=== PATIENT | female | born 1965 | race Caucasian/White ===

== ENCOUNTER 2019-12-18 07:46 | Outpatient (CLI) | payer OTHER, SELFPAY ==
--- NOTE | 2019-12-18 08:19 | US_ITS ---
WS: [id number] ABDOMINAL ULTRASOUND REASON FOR EXAM: ABDOMINAL PAIN TECHNIQUE: Grayscale and Doppler ultrasound examination of the abdomen. FINDINGS: Pancreas: Visualized portions are unremarkable. Abdominal aorta and IVC: Visualized portions are unremarkable. Liver: Liver measures 16.3 cm in length. Increased heterogeneous echo pattern compatible with fatty i nfiltration. Gallbladder: Gallbladder wall thickness measures 0.3 cm. Multiple calculi within the gallbladder. Pat ient had pain to palpation with the ultrasound probe over the gallbladder. Left kidney: Left kidney measures 12.8 cm x 5.7 cm x 6.6 cm. No calculus or mass. There is mild/moder ate dilatation of the intrarenal collecting system. Right kidney: Right kidney measures 12.1 cm x 5.6 cm x 4.5 cm. No mass, calculus, or hydronephrosis. Spleen: Spleen measures 8.7 cm x 5.2 cm x 10.5 cm. No focal lesion. No free peritoneal fluid. US/US abdomen complete* [id number] IMPRESSION: Cholelithiasis and tenderness to palpation of the gallbladder compatible with a cute cholecystitis. There is also fatty infiltration of the liver. There is mild to moderate hydronephrosis of the left kidney. Possibly this is d ue to the relative UPJ stenosis. More significant obstructive cause cannot be c ompletely excluded. As clinically warranted a follow-up ultrasound of the left kidney can be performed and if the dilatation persists a CT scan may be require d for further evaluation.
== END 2019-12-18 07:47 | disposition home or self-care (01) ==
PROVIDERS: PCP Nurse Practitioner Family; Visit Provider Nurse Practitioner Family
DX: R10.9 Unspecified abdominal pain (principal); K80.20 Calculus of gallbladder without cholecystitis without obstruction; K76.0 Fatty (change of) liver, not elsewhere classified; N13.30 Unspecified hydronephrosis
CPT/HCPCS: 76700

== ENCOUNTER → 2020-01-02 13:28 | Outpatient (BNVA) | payer OTHER, SELFPAY | PROVIDERS: PCP Nurse Practitioner Family; Visit Provider Surgery | DX: Z11.59 Encounter for screening for other viral diseases (principal); K80.20 Calculus of gallbladder without cholecystitis without obstruction | CPT/HCPCS: 87635 ==

== ENCOUNTER 2020-01-06 07:21 | Day surgery (SDC) | payer OTHER, SELFPAY ==
[2020-01-05 09:47] VITALS: BMI 39.6
[2020-01-06] VITALS (8 sets, daily range): BP systolic 124–157; BP diastolic 76–95; PULSE 54–74; RESP 15–20; TEMP 36.1–36.6; O2SAT 96–100
--- NOTE | 2020-01-06 08:07 | W.PM.OPSUD ---
Surgery/Procedure H&P Update DATE OF PROCEDURE: January 06, 2020 DATE H&P PERFORMED: 12/28/19 H&P UPDATE INFORMATION: I have reviewed H&P completed within last 30 days, I have examined patient prior to procedure and No changes to prior documentation PREOP DIAGNOSIS: cholelithiasis PLANNED PROCEDURE: Operation Date: 01/06/20 08:50 Proposed Procedures p Laparoscopic poss open Cholecystectomy 04305 k80.20(Not Applicable) - Obed Lau MD
--- NOTE | 2020-01-06 08:09 | PM.OP ---
Operative Report Date of procedure: January 06, 2020 Pre-op Diagnosis: cholelithiasis Post-op diagnosis: same Procedure Done: Laparoscopic cholecystectomy Pathology: Gallbladder Surgeon: Obed Lau Anesthesia: General Condition: stable Disposition: PACU Procedure: The patient was taken to the operating room and was intubated under general anesthesia. After the antibiotic had been administered, the abdomen was prepped and draped in a sterile manner. Using a #15 blade, a 1 centimeter infraumbilical curvilinear incision was made and using an open Natalie technique the peritoneal cavity was entered. A 10 millimeter port was placed and 15 millimeters of pneumoperitoneum was created. A 10 millimeter, 30 degrees scope was then introduced. Three 5 millimeter ports were placed in the epigastric, midclavicular and the anterior axillary line two fingerbreadths below the costal margin on the right side under the direct visualization. Ratcheted forceps were introduced into the lateral most port and was used to retract the fundus of the gallbladder cephalad and using forceps the infundibulum of the gallbladder was retracted laterally. Using L-hook cautery the peritoneum overlying the Calot's triangle was opened medially and laterally until the cystic duct and the anterior and posterior branch of cystic artery were skeletonized. Dissection was carried along the body of the gallbladder and after ensuring critical view of safety, 4 clips applied on the cystic duct and 3 clips applied on the anterior and posterior branch of cystic artery and cut leaving, 3 clips on the remaining portion of the duct and 2 clips on the remaining portion of the artery. The rest of the gallbladder was dissected off the liver using L-hook cautery. There was no bleeding or bile leaking noted from the gallbladder fossa and the clips appeared to be in place. An EndoCatch bag was introduced to remove the gallbladder. All the ports were removed under direct visualization and there was no bleeding noted from the port sites. The fascia of the umbilicus was closed using [id number] Vicryl sutures and the subcutaneous tissue was approximated using 3-0 Vicryl sutures. The skin at all four ports were closed using 4-0 Monocryl and Dermabond. A total of 10 millimeters of 0.5% Marcaine was infiltrated around the port sites. The patient was stable throughout the procedure.
[2020-01-06] MEDS: sodium chloride 0.9% 1,000 ML 30 ML IV (08:18)
--- NOTE | 2020-01-06 08:28 | ANES.PREANE2 ---
Pre-Anesthetic Assessment Pre-Anesthetic Assessment: Height/Weight: Height 1.65 m Weight 107.955 kg Temp Pulse Resp BP Pulse Ox 97.7 F 74 16 142/76 100 01/06/20 08:06 01/06/20 08:06 01/06/20 08:06 01/06/20 08:06 01/06/20 08:06 Preop Diagnosis: cholelithiasis Proposed Procedure: Operation Date: 01/06/20 08:50 Proposed Procedures p Laparoscopic poss open Cholecystectomy 94104 k80.20(Not Applicable) - Obed Lau MD Familial anesthetic complications: States she was told she stopped breathing during her appendectomy last november and they had to sit her up in the middle of her surgery. Anesthesia record from that time mentions no intraoperative difficulties. Was Beta Eileen taken within 24 hours: N/A Last intake: Intake Last Liquid Date 01/06/20 Last Liquid Time 05:00 Last Solid Date 01/05/20 Last Solid Time 19:00 Social: Social History: No alcohol and No tobacco Exam: Pre-Anes Outpt Exam: alert, oriented x 3, clear to auscultation bilaterally and regular rate & rhythm Airway: Cervical ROM: WNL MP: 3 Dentition: Chipped and Other (chipped top front) Pulmonary: Pulmonary: Sleep apnea GI: GI: GERD Metabolic: Metabolic: Morbid obesity Anesthetic Plan: ASA status: 2 Anesthesia: General Risk of > 500 ml blood loss (7ml/kg in children): No Meds/Allergies Current Medications: Current Medications Generic Name Dose Route Start Last Admin Trade Name Freq PRN Reason Stop Dose Admin Sodium Chloride 1,000 mls @ 30 ml s/hr 01/06/20 08:00 01/06/20 08:18 Sodium Chloride 0.9% IV 01/07/20 07:59 30 mls/hr .Q24H MARIAN Administration PFSH Anesthesia PFSH: Medical History (Updated 01/06/20 @ 08:08 by Obed Lau MD) No pertinent past medical history Surgical History (Updated 01/06/20 @ 08:08 by Obed Lau MD) History of appendectomy 11/2018 Status post laparoscopic cholecystectomy (01/06/20) Family History Other CAD (coronary artery disease) Cancer Diabetes Hypertension Denies family history of Anesthesia complication Bleeding disorder Social History Smoking and tobacco status: never smoked Alcohol intake: never Household members: spouse Marital status: Current occupational status: employed History of recent travel: No Data Anesthesia Cardiac Studies: No Data to Display
[2020-01-06] MEDS: midazolam 1 mg/mL INJ 2 mL 2 MG IVP (08:39)
[2020-01-06] MEDS: ciprofloxacin 400 MG/200 ML PREMIX 200 MG IV (08:39)
[2020-01-06] MEDS: HYDROcodone-acetaminophen 5-325 mg Tablet 1 TAB PO (10:16)
[2020-01-06] MEDS: ondansetron 2 mg/ML SDV 2 mL 4 MG IVP (11:09)
[2020-01-06] MEDS: metoclopramide 5 mg/mL SDV 2 mL 10 MG IVP (11:42)
== END 2020-01-06 12:00 | disposition home or self-care (01) ==
PROVIDERS: PCP Nurse Practitioner Family; Visit Provider Surgery
PROC: 0FT44ZZ Resection of Gallbladder, Percutaneous Endoscopic Approach (ICD-10-PCS; CPT 47562; principal; 2020-01-06 08:50)
DX: K80.10 Calculus of gallbladder with chronic cholecystitis without obstruction (principal); G47.30 Sleep apnea, unspecified; K21.9 Gastro-esophageal reflux disease without esophagitis; E66.01 Morbid (severe) obesity due to excess calories; Z68.39 Body mass index [BMI] 39.0-39.9, adult
CPT/HCPCS: 47562; 12345; 88304; 96374; 96375; J0744; J1100; J1885; J2250; J2405; J2704; J2710; J2765; J3010; J3490; J7030